=== PATIENT | female | born 1985 | race Caucasian/White ===

== ENCOUNTER 2020-11-07 10:27 | Emergency (ER) | payer MEDICAID, OTHER ==
[~2020-11-07] VITALS: Ht 165.1 cm; Wt 85.0 kg
[2020-11-07 10:41] VITALS: BP 129/67
[2020-11-07] MEDS ORDERED: KETOROLAC 30MG/ML VIAL IM ONE (11:00)
[2020-11-07] MEDS ORDERED: BACITRACIN ZINC OINT UDPKT TOP ONE (12:00)
== END 2020-11-07 12:02 | disposition home or self-care (01) ==
LOC: ER 10:27
DX: S80.02XA Contusion of left knee, initial encounter (principal); S93.492A Sprain of other ligament of left ankle, initial encounter; W18.39XA Other fall on same level, initial encounter; Y93.89 Activity, other specified; Y92.89 Other specified places as the place of occurrence of the external cause; Y99.8 Other external cause status
CPT/HCPCS: 73562; 73610; 96372; 99284; J1885